=== PATIENT | male | born 1950 | race Caucasian/White ===

== ENCOUNTER 2023-07-20 21:59 | Emergency (ER) | payer OTHER, MEDICAID ==
[~2023-07-20] VITALS: Ht 172.7 cm; Wt 70.0 kg
[2023-07-20 22:48] VITALS: PULSE 62; RESP 27; O2SAT 97
[2023-07-20] MEDS ORDERED: IPRATROPIUM BROM 0.5 MG/2.5ML INH SOL NEB ONE (23:45)
[2023-07-20] MEDS ORDERED: MORPHINE SULFATE 4 MG/ML SYR/VIAL IV ONE (23:45)
[2023-07-20] MEDS ORDERED: DexAMETHasone SOD PHOS 10MG/1ML VIAL INJ IV ONE (23:45)
[2023-07-20] MEDS ORDERED: ALBUTEROL SULF 2.5 MG/0.5ML(0.5%) NEB SOLN NEB ONE (23:45)
[2023-07-20] MEDS ORDERED: ONDANSETRON HCL 4 MG/2 ML VIAL IV ONE (23:45)
[2023-07-21 00:05] LABS: Urine Bacteria NONE SEEN /hpf (None Seen); Urine Blood Negative /uL (Negative); Urine Clarity Clear (Clear); Urine Color Colorless (Yellow); Urine Protein, UAD Negative (Negative); Urine Specific Gravity 1.003 (1.001-1.035); Urine Urobilinogen Normal (Negative); Urine WBC <1 /hpf (0 - 3)
[2023-07-21 00:06] LABS: Basophils # (auto) 0.1 10 ^3/uL (0-0.2); Basophils % (auto) 0.8 % (0.0-2.0); Eosinophils # (auto) 0.2 10 ^3/uL (0-0.8); Eosinophils % (auto) 2.5 % (0.0-7.0); Hematocrit 35.4 % (41.0-53.0); Hemoglobin 12.1 g/dL (13.5-17.5); Lymphocytes # (auto) 1.9 10 ^3/uL (0.4-5.4); Lymphocytes % (auto) 28.3 % (10.0-50.0); Mean Corpuscular Hgb Conc. 34.3 g/dL (32.0-36.0); Mean Corpuscular Volume 99.1 fL (80.0-100.0); Monocytes # (auto) 0.5 10 ^3/uL (0-1.3); Monocytes % (auto) 7.1 % (0.0-12.0); Neutrophils # (auto) 4.1 10 ^3/uL (1.6-8.6); Neutrophils % (auto) 61.3 % (37.0-80.0); Nucleated Red Blood Cells % 0.1 %; Red Blood Cells 3.57 10^6/uL (4.5-5.90); Red Cell Distribution Width 13.3 % (11.8-14.3); White Blood Cell 6.7 10^3/uL (4.4-10.8)
[2023-07-21 00:19] LABS: Alanine Aminotransferase 89 U/L (7-40); Alkaline Phosphatase 145 U/L (46-116); Anion Gap 5.7 (5-15); Aspartate Aminotransferase 47 U/L (13-40); BUN/Creatinine Ratio 15.5 (10.0-20.0); Blood Urea Nitrogen 18 mg/dL (9-23); Calcium 9.1 mg/dL (8.7-10.4); Carbon Dioxide 25.3 mmol/L (20-30); Chloride 108 mmol/L (98-107); Glucose 247 mg/dL (74-106); Magnesium 1.6 mg/dL (1.6-2.6); Potassium 4.5 mmol/L (3.5-5.1); Sodium 139 mmol/L (136-145)
[2023-07-21 00:20] LABS: Albumin 3.6 g/dL (3.2-4.8); Bilirubin, Total 0.3 mg/dL (0.2-1.0)
[2023-07-21 00:21] LABS: Total Protein 5.8 g/dL (5.7-8.2)
[2023-07-21 00:35] LABS: INR 1.07 (0.9-1.15); Partial Thromboplastin Time 27.3 SEC (24.5-34.5); Prothrombin Time 11.2 sec (9.3-11.8)
[2023-07-21] MEDS ORDERED: ATROPINE SULFATE 1 MG/1 ML VIAL ONE (01:28)
[2023-07-21] MEDS ORDERED: SODIUM CHLORIDE 0.9% 1,000 ML IV ONE (01:30)
[2023-07-21] MEDS ORDERED: ATROPINE SULF 1 MG/10ml SYR IV ONE (02:00)
[2023-07-21] MEDS ORDERED: ASPirin 325 MG TAB PO ONE (03:45)
[2023-07-21] MEDS ORDERED: ALBUTEROL SULF 2.5 MG/0.5ML(0.5%) NEB SOLN NEB ONE (03:45)
[2023-07-21] MEDS ORDERED: ENOXAPARIN SOD 80 MG/0.8ML SYRINGE SC ONE (03:45)
[2023-07-21] MEDS ORDERED: HYDROmorphone HCL 2 MG/ML VL/or syr IV ONE (04:45)
[2023-07-21] MEDS ORDERED: METHOCARBAMOL 500 MG TAB PO ONE (05:45)
[2023-07-21] MEDS ORDERED: fentaNYL CITRATE 100 MCG/2 ML VL IV ONE (05:45)
[2023-07-21 07:56] VITALS: PULSE 80; RESP 19; O2SAT 95
[2023-07-21 09:46] VITALS: BP 170/98; PULSE 81; RESP 26; TEMP 98.4; O2SAT 95
== END 2023-07-21 09:53 | disposition short-term general hospital (02) ==
LOC: EDBD 21:59 → ER 21:59
DX: J44.1 Chronic obstructive pulmonary disease with (acute) exacerbation (principal); R00.1 Bradycardia, unspecified; E11.65 Type 2 diabetes mellitus with hyperglycemia; I10 Essential (primary) hypertension; F17.210 Nicotine dependence, cigarettes, uncomplicated; F12.10 Cannabis abuse, uncomplicated
CPT/HCPCS: 36415; 71045; 80053; 81001; 83735; 83880; 84484; 85025; 85610; 85730; 93005; 94640; 96361; 96372; 96374; 96375; 99285; J0461; J1100; J1170; J1650; J2270; J2405; J3010; J7030; J7644

== ENCOUNTER 2023-07-22 14:03 | Emergency (ER) | payer OTHER, MEDICAID ==
[~2023-07-22] VITALS: Ht 170.2 cm; Wt 68.2 kg
[2023-07-22 14:34] LABS: Basophils # (auto) 0.1 10 ^3/uL (0-0.2); Basophils % (auto) 0.3 % (0.0-2.0); Eosinophils # (auto) 0 10 ^3/uL (0-0.8); Eosinophils % (auto) 0.1 % (0.0-7.0); Hematocrit 40.3 % (41.0-53.0); Hemoglobin 13.3 g/dL (13.5-17.5); Lymphocytes # (auto) 1.1 10 ^3/uL (0.4-5.4); Lymphocytes % (auto) 7.3 % (10.0-50.0); Mean Corpuscular Hemoglobin 33.3 pg (28.0-32.0); Mean Corpuscular Hgb Conc. 33.1 g/dL (32.0-36.0); Mean Corpuscular Volume 100.7 fL (80.0-100.0); Monocytes # (auto) 0.9 10 ^3/uL (0-1.3); Monocytes % (auto) 5.8 % (0.0-12.0); Neutrophils # (auto) 13.2 10 ^3/uL (1.6-8.6); Neutrophils % (auto) 86.5 % (37.0-80.0); Red Cell Distribution Width 13.2 % (11.8-14.3); White Blood Cell 15.2 10^3/uL (4.4-10.8)
[2023-07-22 14:37] LABS: Alanine Aminotransferase 114 U/L (7-40); Albumin 3.9 g/dL (3.2-4.8); Alkaline Phosphatase 146 U/L (46-116); Anion Gap 4 (5-15); Aspartate Aminotransferase 71 U/L (13-40); BUN/Creatinine Ratio 27.4 (10.0-20.0); Calcium 8.9 mg/dL (8.7-10.4); Carbon Dioxide 26 mmol/L (20-30); Chloride 104 mmol/L (98-107); Glucose 324 mg/dL (74-106); Magnesium 1.8 mg/dL (1.6-2.6); Potassium 4.8 mmol/L (3.5-5.1)
[2023-07-22 14:38] LABS: Bilirubin, Total 0.4 mg/dL (0.2-1.0); Total Protein 6.1 g/dL (5.7-8.2)
[2023-07-22 14:43] LABS: Blood Urea Nitrogen 31 mg/dL (9-23); Sodium 134 mmol/L (136-145)
[2023-07-22] MEDS ORDERED: ONDANSETRON HCL 4 MG/2 ML VIAL IV ONE (14:45)
[2023-07-22] MEDS ORDERED: GLUCAGON EMERG KIT 1mg/1ml IV ONE (14:45)
[2023-07-22 14:50] LABS: INR 1.07 (0.9-1.15); Partial Thromboplastin Time 25.7 SEC (24.5-34.5); Prothrombin Time 11.2 sec (9.3-11.8)
[2023-07-22] MEDS ORDERED: IPRATROPIUM BROM 0.5 MG/2.5ML INH SOL HHN ONE (15:30)
[2023-07-22] MEDS ORDERED: ALBUTEROL SULF 2.5 MG/0.5ML(0.5%) NEB SOLN HHN ONE (15:30)
[2023-07-22] MEDS ORDERED: levoFLOXacin 250 MG TAB PO ONE (15:30)
[2023-07-22] MEDS ORDERED: FUROSEMIDE 20 MG/2 ML VIAL IV ONE (15:30)
[2023-07-22] MEDS ORDERED: methylPREDNISolone SOD SUCC 40 MG/ML VL IV ONE (15:30)
[2023-07-22 18:12] LABS: Urine WBC None Seen /hpf (0 - 3)
[2023-07-22 18:38] LABS: COVID19 ANTIGEN SOFIA FIA NEGATIVE (NEGATIVE)
[2023-07-22 18:45] LABS: Urine Bacteria NONE SEEN /hpf (None Seen); Urine Blood Negative /uL (Negative); Urine Clarity Clear (Clear); Urine Color Colorless (Yellow); Urine Protein, UAD Negative (Negative); Urine Specific Gravity 1.008 (1.001-1.035); Urine Urobilinogen Normal (Negative); Urine pH 5.5 (5.0-8.0)
[2023-07-22 23:30] VITALS: PULSE 60; RESP 15; O2SAT 99
[2023-07-23] MEDS ORDERED: HYDROcodone-ACET 5/325MG TAB PO ONE (02:00)
[2023-07-23 08:00] VITALS: PULSE 52; RESP 16; O2SAT 95
[2023-07-23 08:42] VITALS: BP 166/76; PULSE 60; RESP 18; TEMP 97.6; O2SAT 94
== END 2023-07-23 09:14 | disposition home or self-care (01) ==
LOC: ER 14:03
DX: J44.1 Chronic obstructive pulmonary disease with (acute) exacerbation (principal); R06.00 Dyspnea, unspecified; I48.92 Unspecified atrial flutter; R00.1 Bradycardia, unspecified; R91.8 Other nonspecific abnormal finding of lung field; Z20.822 Contact with and (suspected) exposure to COVID-19; Z88.0 Allergy status to penicillin; Z88.6 Allergy status to analgesic agent; Z79.899 Other long term (current) drug therapy
CPT/HCPCS: 36415; 71045; 80053; 81001; 82962; 83735; 83880; 84484; 85025; 85610; 85730; 87426; 93005; 94640; 96374; 96375; 99291; J1610; J1940; J2405; J2920; J7644

== ENCOUNTER 2023-09-01 16:42 | Emergency (ER) | payer OTHER, MEDICAID ==
[~2023-09-01] VITALS: Ht 170.2 cm; Wt 72.8 kg
[2023-09-01 17:05] LABS: Basophils # (auto) 0.1 10 ^3/uL (0-0.2); Basophils % (auto) 0.8 % (0.0-2.0); Eosinophils # (auto) 0.2 10 ^3/uL (0-0.8); Eosinophils % (auto) 2.3 % (0.0-7.0); Hematocrit 41.5 % (41.0-53.0); Lymphocytes % (auto) 20.5 % (10.0-50.0); Mean Corpuscular Hgb Conc. 33.8 g/dL (32.0-36.0); Mean Corpuscular Volume 97.6 fL (80.0-100.0); Monocytes # (auto) 0.8 10 ^3/uL (0-1.3); Monocytes % (auto) 8.3 % (0.0-12.0); Neutrophils # (auto) 6.7 10 ^3/uL (1.6-8.6); Neutrophils % (auto) 68.1 % (37.0-80.0); Red Blood Cells 4.26 10^6/uL (4.5-5.90); White Blood Cell 9.8 10^3/uL (4.4-10.8)
[2023-09-01 17:23] LABS: Alanine Aminotransferase 18 U/L (7-40); Albumin 4.3 g/dL (3.2-4.8); Alkaline Phosphatase 63 U/L (46-116); Anion Gap 10 (5-15); Aspartate Aminotransferase 9 U/L (13-40); BUN/Creatinine Ratio 18.8 (10.0-20.0); Blood Urea Nitrogen 19 mg/dL (9-23); Calcium 9.5 mg/dL (8.7-10.4); Carbon Dioxide 22 mmol/L (20-30); Chloride 104 mmol/L (98-107); Glucose 159 mg/dL (74-106); Potassium 4.2 mmol/L (3.5-5.1); Sodium 136 mmol/L (136-145)
[2023-09-01 17:24] LABS: Bilirubin, Total 0.4 mg/dL (0.2-1.0); Total Protein 6.6 g/dL (5.7-8.2)
[2023-09-01 18:13] LABS: Urine Bacteria NONE SEEN /hpf (None Seen); Urine Blood Negative /uL (Negative); Urine Clarity Clear (Clear); Urine Color Yellow (Yellow); Urine Protein, UAD Negative (Negative); Urine Specific Gravity 1.012 (1.001-1.035); Urine Urobilinogen Normal (Negative); Urine WBC <1 /hpf (0 - 3)
[2023-09-01 21:00] VITALS: BP 133/88; PULSE 84; RESP 18; TEMP 98.3; O2SAT 94
== END 2023-09-01 21:15 | disposition home or self-care (01) ==
LOC: ER 16:42
DX: R07.89 Other chest pain (principal); I10 Essential (primary) hypertension; E11.9 Type 2 diabetes mellitus without complications; J44.9 Chronic obstructive pulmonary disease, unspecified; F17.210 Nicotine dependence, cigarettes, uncomplicated; F15.90 Other stimulant use, unspecified, uncomplicated; Z88.8 Allergy status to other drugs, medicaments and biological substances; Z88.0 Allergy status to penicillin
CPT/HCPCS: 36415; 71046; 80053; 81001; 84484; 85025; 93005

== ENCOUNTER 2024-02-01 08:33 | Emergency (ER) | payer OTHER, MEDICAID ==
[~2024-02-01] VITALS: Ht 172.7 cm; Wt 67.6 kg
[~2024-02-01 08:33] MED LIST: AZIT500T66 PO; PROM1SOL4 PO
[2024-02-01 08:42] VITALS: BP 130/56; PULSE 101; RESP 16; O2SAT 95
[2024-02-01] MEDS ORDERED: AMOX500T3 PO (14:38)
[2024-02-01] MEDS ORDERED: CIPR1SUS8 OT (14:38)
== END 2024-02-01 09:40 | disposition left against medical advice (07) ==
LOC: ER 08:33
DX: H92.09 Otalgia, unspecified ear (principal); J02.9 Acute pharyngitis, unspecified; Z53.21 Procedure and treatment not carried out due to patient leaving prior to being seen by health care provider

== ENCOUNTER 2024-02-01 11:00 | Emergency (ER) | payer OTHER, MEDICAID ==
[~2024-02-01] VITALS: Ht 172.7 cm; Wt 68.7 kg
[2024-02-01 11:20] VITALS: BP 134/67; PULSE 80; RESP 14; TEMP 97.4; O2SAT 99
[2024-02-01] MEDS ORDERED: AMOX500T3 PO (14:38)
[2024-02-01] MEDS ORDERED: CIPR1SUS8 OT (14:38)
== END 2024-02-01 14:42 | disposition home or self-care (01) ==
LOC: ER 11:00
DX: H66.91 Otitis media, unspecified, right ear (principal); I10 Essential (primary) hypertension; E11.9 Type 2 diabetes mellitus without complications; J44.9 Chronic obstructive pulmonary disease, unspecified; F17.210 Nicotine dependence, cigarettes, uncomplicated; Z79.2 Long term (current) use of antibiotics; Z79.1 Long term (current) use of non-steroidal anti-inflammatories (NSAID); Z79.899 Other long term (current) drug therapy; Z88.0 Allergy status to penicillin; Z88.6 Allergy status to analgesic agent

== ENCOUNTER 2024-06-15 07:14 | Emergency (ER) | payer MEDICAID, OTHER ==
[~2024-06-15] VITALS: Ht 172.7 cm; Wt 61.3 kg
[~2024-06-15 07:14] MED LIST changes: +AMOX500T3 PO; +CIPR1SUS8 OT
[2024-06-15 08:11] LABS: Alanine Aminotransferase 11 U/L (7-40); Alkaline Phosphatase 74 U/L (46-116); Anion Gap 7 (5-15); Aspartate Aminotransferase < 8 U/L (13-40); BUN/Creatinine Ratio 21.5 (10.0-20.0); Bilirubin, Total 0.6 mg/dL (0.2-1.0); Blood Urea Nitrogen 17 mg/dL (9-23); Calcium 9.8 mg/dL (8.7-10.4); Carbon Dioxide 26 mmol/L (20-30); Chloride 107 mmol/L (98-107); Glucose 149 mg/dL (74-106); Potassium 3.9 mmol/L (3.5-5.1); Sodium 140 mmol/L (136-145); Total Protein 6.6 g/dL (5.7-8.2)
[2024-06-15 08:17] LABS: Basophils # (auto) 0.1 10 ^3/uL (0-0.2); Basophils % (auto) 0.6 % (0.0-2.0); Eosinophils # (auto) 0.3 10 ^3/uL (0-0.8); Eosinophils % (auto) 2.6 % (0.0-7.0); Hematocrit 43.4 % (41.0-53.0); Hemoglobin 14.9 g/dL (13.5-17.5); Lymphocytes # (auto) 1.5 10 ^3/uL (0.4-5.4); Lymphocytes % (auto) 14.3 % (10.0-50.0); Mean Corpuscular Hemoglobin 33.1 pg (28.0-32.0); Mean Corpuscular Hgb Conc. 34.4 g/dL (32.0-36.0); Mean Corpuscular Volume 96.5 fL (80.0-100.0); Monocytes # (auto) 0.6 10 ^3/uL (0-1.3); Monocytes % (auto) 5.2 % (0.0-12.0); Neutrophils # (auto) 8.2 10 ^3/uL (1.6-8.6); Neutrophils % (auto) 77.3 % (37.0-80.0); Red Cell Distribution Width 13.4 % (11.8-14.3); White Blood Cell 10.6 10^3/uL (4.4-10.8)
[2024-06-15 08:30] LABS: INR 1.04 (0.9-1.15); Partial Thromboplastin Time 25.7 SEC (24.5-34.5)
[2024-06-15] MEDS: SODIUM CHLORIDE 0.9% 1,000 ML IV ONE (08:38)
[2024-06-15 09:02] VITALS: PULSE 69; RESP 12; O2SAT 96
[2024-06-15 10:40] LABS: Free T3 2.27 pg/mL (2.3-4.2); Free T4 (Free Thyroxine) 0.93 ng/dL (0.89-1.76)
[2024-06-15 10:56] VITALS: TEMP 97.3
[2024-06-15] MEDS: MAGNESIUM OXIDE 400 MG TAB PO ONE (12:51)
[2024-06-15 12:52] VITALS: BP 118/62; PULSE 68; RESP 17; O2SAT 96
== END 2024-06-15 13:12 | disposition home or self-care (01) ==
LOC: ER 07:14
DX: G20.A1 Parkinson's disease without dyskinesia, without mention of fluctuations (principal); E83.42 Hypomagnesemia; E86.0 Dehydration; E11.9 Type 2 diabetes mellitus without complications; I10 Essential (primary) hypertension; J44.9 Chronic obstructive pulmonary disease, unspecified; F17.210 Nicotine dependence, cigarettes, uncomplicated; F12.10 Cannabis abuse, uncomplicated; Z88.0 Allergy status to penicillin
CPT/HCPCS: 36415; 71045; 80053; 82550; 83036; 83735; 83880; 84439; 84443; 84481; 84484; 85025; 85610; 85730; 93005; 96360; 99285; J7030